=== PATIENT | male | born 1965 | race Caucasian/White ===

== ENCOUNTER 2016-10-03 14:22 | Outpatient (CLI) ==
[2014-05-07 02:01] VITALS: BMI 23.7
--- NOTE | 2016-10-03 15:37 | US ---
Examination: Ultrasonographic claudio-scale and color Doppler imaging of the scrotum in real time. Comparison: None available. Reason for study: Left testicular enlargement. FINDINGS: Right testicle: The right testicle measures 4.1 x 2.0 x 2.8 cm with normal appearing echotexture, normal vascular fl ow, and no identifiable mass lesions. The right epididymis is unremarkable with normal echotexture and normal vascular flow. Left testicle: The left testicle measures 4.4 x 2.3 x 3.6 cm with normal appearing echotexture and normal vascular flow. No identifiable mass lesion is seen within the left testicle. The left epididymis is unremarkable with normal appearing act echotexture and normal vascular flow. There is a mild varicocele noted on the left. There is a large hydrocele are seen adjacent to the left testicle. Impression: 1. Large hydrocele and mild varicocele on the left with no ultrasonographic evidence of acute left testicular torsion or mass lesion. 2. The right testicle appears normal.
== END 2016-10-03 14:23 | disposition home or self-care (01) ==
LOC: RAD 14:22
PROVIDERS: ATTEND Internal Medicine
DX: N44.8 Other noninflammatory disorders of the testis (principal); N43.3 Hydrocele, unspecified

== ENCOUNTER 2016-11-03 13:00 | Outpatient (RCR) ==
[2014-05-07 02:01] VITALS: BMI 23.7
--- NOTE | 2016-10-27 10:14 | RS.OPPTEV2 ---
Date of Note: 10/26/16 Visit #: 1 Date of Evaluation: 10/26/16 Payer Source: Insurance Treatment Diagnosis: Right scapular pain, strain of right shoulder History of Condition/Mechanism of Injury:: Patient reports right shoulder pain since approximately July 2016. States he thinks it started when he was changing the batteries of an electric vehicle. States pain has progressively gotten worse. Current Subjective/complaints:: Patient states his pain has progressively gotten worse. He is right hand dominant. States the pain keeps him up at night. Reports no previous problems with the right shoulder. He received an injection in the shoulder joint along with a 7 day steroid pack. States the injection seemed to help at the time, but the pain returned by the next day. States he has had tingling down the right arm into the hand. Treatment Side (optional): Right Medical History Medical History: Hypertension Smoking Status: Never smoker Hx Home Medications: States he has medication to take at night. He is unsure if it is pain medication or muscle relaxant. Patient's Goals: His goal is to get relief of right shoulder pain. Pain Assessment - Pain Description Pain Location: right scapula Pain Description: Aching Current Pain Intensity: 8/10 Worst Pain Intensity: not rated Functional Outcome Measure UE Functional Index: 47 (47/80=41.25% impairment) - G Codes & Severity Modifier G Codes & Modifier: NA Source of G Code score: NA Observation - Observation Posture: Forward Head, Rounded Shoulders, Scapula Asymmetry (right scapula depressed compared to the left) Handedness: Right - ROM Comments: Cervical AROM is WFL's, with patient reporting some pulling at the right scapula area with end range cervical flexion. Bilateral UE AROM is WFL's. - Special Tests Shoulder Empty Can (Supraspinatus) Test: Negative Left, Negative Right Shoulder Speed's Sign Test: Negative Left, Negative Right Shoulder Drop Arm Test: Negative Left, Negative Right Shoulder Iniguez-Marshall Impingement Test: Negative Left, Negative Right Bureau Director Strength Left Hand Bureau Director Strength: 62 lbs. Right Hand Bureau Director Strength: 80 lbs. Dynamometer Testing Position: 2nd Position Palpation Comments:: Patient with marked muscle guarding along the medial border of the right scapula. Patient with tenderness and trigger points throughout the medial and inferior border of the right scapula. Sensation - Sensation Right Upper Extremity: Intact/Normal Left Upper Extremity: Intact/Normal - Treatment Modality: Ultrasound Parameters/Method Applied: X 8 mins @ 1.5 w/cm2 continuous along medial and inferior border of scapula Patient Position: Sitting Interventions - Exercise/Activities/Manual Therapy Exercises/Activities: Demonstrated gentle scapula protraction to stretch rhomboids. Manual Therapy: X 16 mins DTM and trigger point work at middle traps/rhomboids. Several trigger points are active along the medial and inferior border of the right scapula. - Charges Total Direct Minutes: 45 mins Total Treatment Time: 45 mins Procedures billed for this date of service:: Mele saini, US, manual therapy Assessment Assessment: Patient presents to therapy with a diagnosis of right shoulder strain. He demonstrates significant muscle guarding along the right periscapular musculature. He is tender and exhibits multiple active trigger points along the medial and inferior border of the right scapula. He demonstrates great potential to benefit from manual therapy to this region to relieve muscle guarding and decrease his pain.. Patient Education: Education of diagnosis, Body/Joint mechanics, Home Exercise Program, Home Safety, Activity Modification, Education of Plan of Care Rehab Potential: Good Short Term Goals Goal #1: Muscle tone along medial border of right scapula <moderate. Goal to be met by: 11/09/16 Goal #2: Tenderness along erick-scapular musculature decreased to minimal. Goal to be met by: 11/09/16 Goal #3: Pt to demonstrate improved postural awareness. Goal to be met by: 11/09/16 Goal #4: Pain at rest <5/10. Goal to be met by: 11/09/16 Assisted Goals Goal #1: Pt independent in HEP. Goal to be met by: 12/10/16 Goal #2: Pt able to use right UE as needed without pain or limitation. Goal to be met by: 12/10/16 Goal #3: Score on UE functional scale improved to 70/80. Goal to be met by: 12/10/16 Plan - Treatment to be Provided Procedures: Therapeutic Exercises, Therapeutic Activity, Manual Therapy, Splinting/Taping, Patient Education Modalities: Electrical Stimulation, Ultrasound/Phonophoresis, Class IV Laser, Cryotherapy, Hot Packs - Treatment Plan Frequency: 3 X week Duration: 6 weeks ORDER # VISITS AND/OR THROUGH DATE: 12/10/16 - Treatment Code (1) Muscle hypertonia Comments: M62.89 (2) Right shoulder pain Qualifiers: Chronicity: acute Qualified Description: Acute pain of right shoulder Qualifier Code(s): (M25.511) Pain in right shoulder
--- NOTE | 2016-10-27 10:26 | RS.OPPTDN ---
Subjective Date of Note: 10/27/16 Visit #: 2 Date of Evaluation: 10/26/16 Payer Source: Insurance Treatment Diagnosis: Right scapular pain, strain of right shoulder Current Subjective/complaints:: Patient reports being sore after therapy yesterday. States he used the tennis ball we gave him, against the wall to put pressure on the areas around his shoulder blade. Pain Assessment - Pain Description Pain Location: right scapula Pain Description: Aching Current Pain Intensity: not rated today, sore - Treatment Modality: Electrical Stim Unattended Parameters/Method Applied: 4 small pads, 2 pads to mid-inferior scapular border , 2 pads to superior angle of scapula to middle scapula border, X 20 mins of HVGS up to 155 peak volts Patient Position: Prone - Heat/Cryotherapy Treatment: Hot Pack (cervical pack over right scapula with Estim) Interventions - Exercise/Activities/Manual Therapy Exercises/Activities: none today Manual Therapy: X 21 mins DTM and trigger point work at right upper traps and along medial and inferior border of right scapula. Demonstrates moderate increased tone that relaxes with manual therapy. Reports significant tenderness with work at trigger points. - Charges Total Direct Minutes: 21 mins Total Treatment Time: 41 mins Procedures billed for this date of service:: HP, Estim, Manual therapy Assessment: Patient with continued muscle guarding and active trigger points throughout the borders of the right scapula. He will benefit from continued modalities and manual therapy to decrease his muscle guarding and pain. Short Term Goals Goal #1: Muscle tone along medial border of right scapula <moderate. Goal to be met by: 11/09/16 Goal #2: Tenderness along erick-scapular musculature decreased to minimal. Goal to be met by: 11/09/16 Goal #3: Pt to demonstrate improved postural awareness. Goal to be met by: 11/09/16 Goal #4: Pain at rest <5/10. Goal to be met by: 11/09/16 Skilled Nursing Goals Goal #1: Pt independent in HEP. Goal to be met by: 12/10/16 Goal #2: Pt able to use right UE as needed without pain or limitation. Goal to be met by: 12/10/16 Goal #3: Score on UE functional scale improved to 70/80. Goal to be met by: 12/10/16 Plan PLAN OF CARE EXPIRES ON:: 12/10/16 ORDER # VISITS AND/OR THROUGH DATE: 12/10/16 PLAN: Continue Plan of Care
--- NOTE | 2016-11-01 09:36 | RS.OPPTDN ---
Subjective Date of Note: 11/01/16 Visit #: 3 Date of Evaluation: 10/26/16 Payer Source: Insurance Treatment Diagnosis: Right scapular pain, strain of right shoulder Current Subjective/complaints:: Patient reports feeling better after last PT session. Pain Assessment - Pain Description Pain Location: right scapula Pain Description: Dull, Aching Current Pain Intensity: 3 - Treatment Modality: Electrical Stim Unattended Parameters/Method Applied: 20 mins. high volt,channel 1 @ 155 pv,channel 2 @ 135 pv. to R scapular medial border. Patient Position: Prone - Heat/Cryotherapy Treatment: Hot Pack (concurrent with e-stim) Interventions - Exercise/Activities/Manual Therapy Exercises/Activities: Instructed in chin tucks and scapular /postural motion while on e-stim. Total minutes of Exercise: 5 Manual Therapy: X 20 mins DTM and trigger point work at right upper traps and along medial and inferior border of right scapula. Demonstrates moderate increased tone that relaxes with manual therapy. Reports significant tenderness with work at trigger points. Total minutes of Manual Therapy: 20 - Charges Total Direct Minutes: 25 Total Treatment Time: 45 Procedures billed for this date of service:: hp,e-stim,manual therapy Assessment: Patient has good erythmic response after manual therapy today.He is tender along the medial border of R scapula,trigger points at the superior and inferior angle of the scapula.He reports relief after PT session today. Patient Education: Education of diagnosis, Body/Joint mechanics, Home Exercise Program, Home Safety, Activity Modification, Education of Plan of Care Short Term Goals Goal #1: Muscle tone along medial border of right scapula <moderate. Goal to be met by: 11/09/16 Progress towards Goal:: Progressing Goal #2: Tenderness along erick-scapular musculature decreased to minimal. Goal to be met by: 11/09/16 Progress towards Goal:: Progressing Goal #3: Pt to demonstrate improved postural awareness. Goal to be met by: 11/09/16 Goal #4: Pain at rest <5/10. Goal to be met by: 11/09/16 Senior Living Goals Goal #1: Pt independent in HEP. Goal to be met by: 12/10/16 Goal #2: Pt able to use right UE as needed without pain or limitation. Goal to be met by: 12/10/16 Goal #3: Score on UE functional scale improved to 70/80. Goal to be met by: 12/10/16 Plan PLAN OF CARE EXPIRES ON:: 12/10/16 ORDER # VISITS AND/OR THROUGH DATE: 12/10/16 PLAN: Continue Plan of Care
--- NOTE | 2016-11-03 15:48 | RS.OPPTDN ---
Subjective Date of Note: 11/03/16 Visit #: 4 Date of Evaluation: 10/26/16 Payer Source: Insurance Treatment Diagnosis: Right scapular pain, strain of right shoulder Current Subjective/complaints:: Patient reports having pain yesterday all day at about 7/10. States it is slightly better today. Reports using biofreeze, ice, and heat at right scapula. Pain Assessment - Pain Description Pain Location: right scapula Pain Description: Dull, Aching Current Pain Intensity: 3 - Treatment Modality: Electrical Stim Unattended Parameters/Method Applied: 4 small pads IFC X 20 mins to right erick-scapular musculature up to 11 peak volts Patient Position: Prone - Heat/Cryotherapy Treatment: Hot Pack Interventions - Exercise/Activities/Manual Therapy Exercises/Activities: Instructed in ulnar, median, and radial nerve gliding. Patient unable to get in full Ulnar III position for ulnar nerve stretch. Shown position to try that is less of a stretch of Ulnar II. Total minutes of Exercise: 5 mins Manual Therapy: X 14 mins Performed effleurage/ light soft tissue manual therapy to reduce swelling and tenderness from last therapy session. Reports significant tenderness with palpation to trigger points, especially along medial border of the scapula. HOME EXERCISE PROGRAM: scapula protraction , nerve glides. - Charges Total Direct Minutes: 19 mins Total Treatment Time: 39 mins Procedures billed for this date of service:: HP, EStim, EX Assessment: Patient with more tenderness and swelling around the right scapula. He could not tolerate deep tissue or trigger point work. He goes to Dr. Solitario for follow up tomorrow. Patient demonstrates compliance with HEP?: Yes Short Term Goals Goal #1: Muscle tone along medial border of right scapula <moderate. Goal to be met by: 11/09/16 Progress towards Goal:: Progressing Goal #2: Tenderness along erick-scapular musculature decreased to minimal. Goal to be met by: 11/09/16 Progress towards Goal:: Progressing Goal #3: Pt to demonstrate improved postural awareness. Goal to be met by: 11/09/16 Goal #4: Pain at rest <5/10. Goal to be met by: 11/09/16 [facility] Goals Goal #1: Pt independent in HEP. Goal to be met by: 12/10/16 Progress towards goal: Progressing Goal #2: Pt able to use right UE as needed without pain or limitation. Goal to be met by: 12/10/16 Goal #3: Score on UE functional scale improved to 70/80. Goal to be met by: 12/10/16 Plan PLAN OF CARE EXPIRES ON:: 12/10/16 ORDER # VISITS AND/OR THROUGH DATE: 12/10/16 PLAN: Progress Exercises
--- NOTE | 2016-12-30 15:39 | RS.QUICKDC ---
Discharge from PT Date of Discharge: 11/08/16 Number of Visits: 4 Reason for Discharge: Patient attended two weeks of therapy as ordered by his doctor. He followed up with him after his last scheduled session and no further contact was made to continue therapy. Patient reported continued pain, primarily around the right scapula. He demonstrated progress towards goals, but did not met his goals due to lack of time. Patient with HEP. Patient discharged at this time due to no further contact to continue therapy.
== END 2016-11-08 ==
PROVIDERS: ATTEND Orthopaedic Surgery
DX: S46.911A Strain of unspecified muscle, fascia and tendon at shoulder and upper arm level, right arm, initial encounter (principal); M25.511 Pain in right shoulder

== ENCOUNTER 2017-01-06 08:15 | Outpatient (RCR) ==
[2014-05-07 02:01] VITALS: BMI 23.7
--- NOTE | 2016-12-30 10:36 | RS.OPPTEV2 ---
Date of Note: 12/30/16 Visit #: 1 Date of Evaluation: 12/30/16 Payer Source: Insurance Surgery Performed?: Yes Date of Procedure: 11/17/16 Treatment Diagnosis: right shoulder weakness, s/p Open Bicep Tenodesis History of Condition/Mechanism of Injury:: Patient reports right shoulder pain since approximately July 2016. States he thinks it started when he was changing the batteries of an electric vehicle. States pain has progressively gotten worse. He attended two weeks of Outpatient Physical Therapy prior to surgery. Prior Level of Function.....Patient was independent with: ADL's, Self Care, Work /Vocation, Caregiving, Ambulation/Mobility, Community Integration/Access Functional Limitations: Reaching, Pushing, Pulling, Lifting, Carrying Current Subjective/complaints:: Patient reports he was in a sling for one day. Given pendulum exercises from the doctor's office. States he has had minimal to no pain. He has not had pain medication for about 4 weeks. States he started using the right UE for daily activities about two weeks ago. Reports he hopes to return to work soon. 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 Currently rates pain 0/10. States he is not having any pain. Treatment Side (optional): Right Medical History Medical History: Hypertension Smoking Status: Never smoker Hx Home Medications: none Patient's Goals: His goal is to regain full strength of the right UE and return to work. Functional Outcome Measure UE Functional Index: 74 (74/80=7.5% impairment) Other: Patient rates himself with less impairment than he should be at 6 weeks s/p biceps tenodesis. Due to weakness of right UE, he presents to be more in the range of 20 to 30% impairment at this time. - G Codes & Severity Modifier G Codes & Modifier: NA Source of G Code score: NA Observation - Observation Inspection: Right shoulder presents with clean, well-healing incision approximately 3 inches at the anterior aspect of the joint. Right biceps muscle belly demonstrates "Blu" deformity compared to the presentation of the left biceps muscle belly. Posture: Forward Head, Rounded Shoulders Handedness: Right - Right Shoulder ROM Comments: Patient volunteers that he has good ROM in right shoulder. Demonstrates functional flexion, scaption, ER, and IR. Demonstrates full AROM of right elbow, wrist, and hand. - Right Shoulder Strength Comments: Gentle strength assessment of the right shoulder finds muscle strength at least 4/5. Triceps 4+/5, Biceps at least 4/5. Gentle isometric given to test biceps. No pain with testing. Right wrist strength 5/5. Dressage Instructor Strength Left Hand Dressage Instructor Strength: 80 lbs. Right Hand Dressage Instructor Strength: 62 lbs. Dynamometer Testing Position: 2nd Position Palpation Comments:: Patient reports no tenderness with palpation throughout the right shoulder or biceps. Sensation - Sensation Right Upper Extremity: Intact/Normal Left Upper Extremity: Intact/Normal Interventions - Exercise/Activities/Manual Therapy Exercises/Activities: Patient instructed in RTC series in pendulum position, scapular retraction. Patient advised to avoid heavy lifting or strain of the right elbow/shoulder. Manual Therapy: Na HOME EXERCISE PROGRAM: RTC series in pendulum position, scapular retraction. - Charges Total Direct Minutes: 35 mins Total Treatment Time: 35 mins Procedures billed for this date of service:: FABIÁN Santiago Assessment Assessment: Patient presents 6 weeks s/p right open Biceps Tenodesis. 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 He reports no pain and has started trying to use the right UE more as instructed by Dr. Solitario. 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 Patient Education: Education of diagnosis, Body/Joint mechanics, Home Exercise Program, Home Safety, Activity Modification, Education of Plan of Care Short Term Goals Goal #1: Patient independent and compliant with HEP. Goal to be met by: 01/13/17 Goal #2: Right shoulder strength 4+/5. Goal to be met by: 01/13/17 Goal #3: Patient to demonstate good postural awareness. Goal to be met by: 01/13/17 Goal #4: Right electronic warfare operator strength improved to 70 lbs. Goal to be met by: 01/13/17 Care Home Goals Goal #1: Pt knows HEP and to cont. Ex's to maintain level of function at D/C. Goal to be met by: 02/13/17 Goal #2: Pt able to perform all ADL's/functional reaching w/o pain or limitation. Goal to be met by: 02/13/17 Goal #3: Score on UE functional scale improved to 80/80. Goal to be met by: 02/13/17 Goal #4: Pt to return to work without limitation. Goal to be met by: 02/13/17 Plan - Treatment to be Provided Procedures: Therapeutic Exercises, Therapeutic Activity, Patient Education Modalities: Cryotherapy - Treatment Plan Frequency: 3 X week Duration: 6 weeks ORDER # VISITS AND/OR THROUGH DATE: 02/13/17 - Treatment Code (1) Muscle right arm weakness Comments: M62.81 (2) S/P shoulder surgery Comments: Z98.890 right shoulder open Biceps Tenodesis
--- NOTE | 2017-01-02 09:22 | RS.OPPTDN ---
Subjective Date of Note: 01/02/17 Visit #: 2 Date of Evaluation: 12/30/16 Payer Source: Insurance Treatment Diagnosis: right shoulder weakness, s/p Open Bicep Tenodesis Current Subjective/complaints:: Patient reports doing well with basic HEP and with light ADL's. Reports right hand still tender is noticeably weaker than left. Pain Assessment - Pain Description Pain Location: right scapula Current Pain Intensity: mild Interventions - Exercise/Activities/Manual Therapy Exercises/Activities: [id number] Isometrics for right biceps, triceps, shoulder IR , ER, flex, and abd. Right RTC series with 4# x4 directions. Red theraband for bilateral shoulder ER. Red theraband for short range shoulder flexion with full elbow extension. Added blue theraband for scapular retraction. Multi-gym station 30# scap retraction. 2# and 4# dumbells for biceps without discomfort. Blue and black digiflexors and heavy gripper for right hand strengthening. Advised patient we will focus on general strengthening of shoulder for stability and should avoid stressing the biceps at this time. Total minutes of Exercise: 25mins Manual Therapy: Na HOME EXERCISE PROGRAM: RTC series in pendulum position, scapular retraction. Cuff series with light weights. Red theraband for bilateral shoulder ER and right shoulder flexion at low level. Blue theraband for scapular retraction. - Charges Total Direct Minutes: 25mins Total Treatment Time: 25mins Procedures billed for this date of service:: EX2 Assessment: Patient tolerates exercise well. will need to aviod overuse of biceps while strengthening shoulder. Patient motivated to progress. Patient Education: Body/Joint mechanics, Home Exercise Program, Home Safety, Activity Modification Patient demonstrates compliance with HEP?: Yes Short Term Goals Goal #1: Patient independent and compliant with HEP. Goal to be met by: 01/13/17 Progress towards Goal:: Progressing Goal #2: Right shoulder strength 4+/5. Goal to be met by: 01/13/17 Goal #3: Patient to demonstate good postural awareness. Goal to be met by: 01/13/17 Progress towards Goal:: Progressing Goal #4: Right still tender strength improved to 70 lbs. Goal to be met by: 01/13/17 Commercial Lending Vice President Goals Goal #1: Pt knows HEP and to cont. Ex's to maintain level of function at D/C. Goal to be met by: 02/13/17 Goal #2: Pt able to perform all ADL's/functional reaching w/o pain or limitation. Goal to be met by: 02/13/17 Goal #3: Score on UE functional scale improved to 80/80. Goal to be met by: 02/13/17 Goal #4: Pt to return to work without limitation. Goal to be met by: 02/13/17 Plan PLAN OF CARE EXPIRES ON:: 02/13/17 ORDER # VISITS AND/OR THROUGH DATE: 02/13/17 PLAN: Continue Plan of Care
--- NOTE | 2017-01-04 10:58 | RS.OPPTDN ---
Subjective Date of Note: 01/04/17 Visit #: 3 Date of Evaluation: 12/30/16 Payer Source: Insurance Treatment Diagnosis: right shoulder weakness, s/p Open Bicep Tenodesis Current Subjective/complaints:: Patient reports mild increased soreness right shoulder with increased resistance exercise. Denies pain or soreness right biceps. Pain Assessment - Pain Description Pain Location: right scapula Current Pain Intensity: mild Interventions - Exercise/Activities/Manual Therapy Exercises/Activities: [id number] Isometrics for right biceps, triceps, shoulder IR , ER, flex, and abd. In sitting, 2# for resistive right shoulder flexion, scaption, and abduction, 4s/5reps each. Isometric for flexion, scaption, abd, IR , ER, biceps and triceps. Right RTC series with 5# x4 directions. Increased to green theraband for bilateral shoulder ER. Multi-gym station 30# scap retraction 3s/10reps. 2# dumbells for biceps without discomfort. Green theraband for "baseball throw", 2s/10reps. Reviewed general strengthening of shoulder for stability and should avoid stressing the biceps at this time. Total minutes of Exercise: 25mins Manual Therapy: Na HOME EXERCISE PROGRAM: RTC series in pendulum position, scapular retraction. Cuff series with light weights. Red theraband for bilateral shoulder ER and right shoulder flexion at low level. Blue theraband for scapular retraction. - Charges Total Direct Minutes: 25mins Total Treatment Time: 25mins Procedures billed for this date of service:: EX2 Assessment: Patient able to progress with resistive exercise. Will need to continue to be conservative with biceps strengthening and avoid repetative motion. Patient Education: Home Exercise Program Patient demonstrates compliance with HEP?: Yes Short Term Goals Goal #1: Patient independent and compliant with HEP. Goal to be met by: 01/13/17 Progress towards Goal:: Progressing Goal #2: Right shoulder strength 4+/5. Goal to be met by: 01/13/17 Goal #3: Patient to demonstate good postural awareness. Goal to be met by: 01/13/17 Progress towards Goal:: Progressing Goal #4: Right hat lacer strength improved to 70 lbs. 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 Ex's to maintain level of function at D/C. Goal to be met by: 02/13/17 Goal #2: Pt able to perform all ADL's/functional reaching w/o pain or limitation. Goal to be met by: 02/13/17 Goal #3: Score on UE functional scale improved to 80/80. Goal to be met by: 02/13/17 Goal #4: Pt to return to work without limitation. Goal to be met by: 02/13/17 Plan PLAN OF CARE EXPIRES ON:: 02/13/17 ORDER # VISITS AND/OR THROUGH DATE: 02/13/17 PLAN: Continue Plan of Care
--- NOTE | 2017-01-06 14:01 | RS.OPPTDN ---
Subjective Date of Note: 01/06/17 Visit #: 4 Date of Evaluation: 12/30/16 Payer Source: Insurance Treatment Diagnosis: right shoulder weakness, s/p Open Bicep Tenodesis Current Subjective/complaints:: Patient reports progressing well. States he tried to hold a small pistol yesterday and has difficulty holding proper position for extended period. He reports the handgun he carries on duty is heavier and would be more difficult to hold or shoot. States he is pleased with progress of right UE and coconut jelly roller strength. Pain Assessment - Pain Description Pain Location: right scapula Current Pain Intensity: mild to mod soreness Interventions - Exercise/Activities/Manual Therapy Exercises/Activities: [id number] Isometrics for right biceps, triceps, shoulder IR , ER, flex, and abd. In sitting, 2# for resistive right shoulder flexion, scaption, and abduction, 4s/5reps each. Isometric for flexion, scaption, abd, IR , ER, biceps and triceps. Green theraband for bilateral shoulder ER. Multi- gym station 30# scap retraction 3s/10reps. 2# dumbells for biceps without discomfort. Green theraband for "baseball throw", 2s/10reps. Ball on wall with 2 # cuff weight to right wrist. Works with 1# dumbell for oscillating shoulder flexion, scaption, abduction, and "empty can" postion (at 90degrees shoulder flexion). Bodyblade different positions short sets. Ended with additional isometrics to shoulder and elbow. Reviewed HEP and to not stress the biceps at this time. Total minutes of Exercise: 25mins Manual Therapy: Na HOME EXERCISE PROGRAM: RTC series in pendulum position, scapular retraction. Cuff series with light weights. Red theraband for bilateral shoulder ER and right shoulder flexion at low level. Blue theraband for scapular retraction. - Objective Findings Observations,measurements,etc.: Right hand coconut jelly roller increased to 68# today. - Charges Total Direct Minutes: 25mins Total Treatment Time: 25mins Procedures billed for this date of service:: EX2 Assessment: Patient progressing well with strengthening. He will need to progress back to PLOF to perform all work duties. Patient Education: Body/Joint mechanics, Home Exercise Program, Home Safety, Activity Modification Patient demonstrates compliance with HEP?: Yes Short Term Goals Goal #1: Patient independent and compliant with HEP. Goal to be met by: 01/13/17 Progress towards Goal:: Progressing Goal #2: Right shoulder strength 4+/5. Goal to be met by: 01/13/17 Progress towards Goal:: Progressing Goal #3: Patient to demonstate good postural awareness. Goal to be met by: 01/13/17 Progress towards Goal:: Progressing Goal #4: Right coconut jelly roller strength improved to 70 lbs. 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 Ex's to maintain level of function at D/C. Goal to be met by: 02/13/17 Goal #2: Pt able to perform all ADL's/functional reaching w/o pain or limitation. Goal to be met by: 02/13/17 Goal #3: Score on UE functional scale improved to 80/80. Goal to be met by: 02/13/17 Goal #4: Pt to return to work without limitation. Goal to be met by: 02/13/17 Plan PLAN OF CARE EXPIRES ON:: 02/13/17 ORDER # VISITS AND/OR THROUGH DATE: 02/13/17 PLAN: Continue Plan of Care
== END 2017-01-08 ==
PROVIDERS: ATTEND Orthopaedic Surgery
DX: M75.21 Bicipital tendinitis, right shoulder (principal)

== ENCOUNTER 2017-01-23 08:00 | Outpatient (RCR) ==
[2014-05-07 02:01] VITALS: BMI 23.7
--- NOTE | 2017-01-09 09:34 | RS.OPPTDN ---
Subjective Date of Note: 01/09/17 Visit #: 5 Date of Evaluation: 12/30/16 Payer Source: Insurance Treatment Diagnosis: right shoulder weakness, s/p Open Bicep Tenodesis Current Subjective/complaints:: Patient says he may have slept wrong or slept on his shoulder due to increase in soreness. He says he has done well with all PT exercises and says he is able to notice improvement with strength, but understands he needs to continue for further strengthening. Reports he returns to his ortho tomorrow morning. Pain Assessment - Pain Description Pain Location: right scapula Current Pain Intensity: mild and fatigue with progressive exercises Interventions - Exercise/Activities/Manual Therapy Exercises/Activities: [id number] Isometrics for right biceps, triceps, shoulder IR , ER, flex, and abd. In sitting, 2# for resistive right shoulder flexion, scaption, and abduction, 4s/5reps each. Isometric for flexion, scaption, abd, IR , ER, biceps and triceps. Green theraband for bilateral shoulder ER. Multi- gym station 30# scap retraction 3s/10reps. 2# dumbells for biceps without discomfort. Green theraband for "baseball throw", 2s/10reps. Ball on wall with 2 # cuff weight to right wrist. Works with 1# dumbell for oscillating shoulder flexion, scaption, abduction, and "empty can" postion (at 90degrees shoulder flexion). Bodyblade different positions short sets. Ended with additional isometrics to shoulder and elbow. Reviewed HEP and to not stress the biceps at this time. Manual Therapy: Na HOME EXERCISE PROGRAM: RTC series in pendulum position, scapular retraction. Cuff series with light weights. Red theraband for bilateral shoulder ER and right shoulder flexion at low level. Blue theraband for scapular retraction. - Objective Findings Observations,measurements,etc.: Carpet Binder @ 2nd position R hand 69# after therex - Charges Total Direct Minutes: 25 Total Treatment Time: 25 Procedures billed for this date of service:: ex2 Assessment: Patient progressing well with all therex. He has general muscle fatigue after completion of therex. He is consistent with HEP and denies any actual pain, tenderness, or popping with activities. Patient Education: Education of diagnosis, Body/Joint mechanics, Home Exercise Program, Home Safety, Activity Modification, Education of Plan of Care Patient demonstrates compliance with HEP?: Yes Short Term Goals Goal #1: Patient independent and compliant with HEP. Goal to be met by: 01/13/17 Progress towards Goal:: Progressing Goal #2: Right shoulder strength 4+/5. Goal to be met by: 01/13/17 Progress towards Goal:: Progressing Goal #3: Patient to demonstate good postural awareness. Goal to be met by: 01/13/17 Progress towards Goal:: Progressing Goal #4: Right jigmaker strength improved to 70 lbs. 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 Ex's to maintain level of function at D/C. Goal to be met by: 02/13/17 Goal #2: Pt able to perform all ADL's/functional reaching w/o pain or limitation. Goal to be met by: 02/13/17 Goal #3: Score on UE functional scale improved to 80/80. Goal to be met by: 02/13/17 Goal #4: Pt to return to work without limitation. Goal to be met by: 02/13/17 Plan PLAN OF CARE EXPIRES ON:: 02/13/17 ORDER # VISITS AND/OR THROUGH DATE: 02/13/17 PLAN: Progress Exercises (Patient to attend ortho follow up tomorrow (January 10))
--- NOTE | 2017-01-11 14:37 | RS.OPPTDN ---
Subjective Date of Note: 01/11/17 Visit #: 6 Date of Evaluation: 12/30/16 Payer Source: Insurance Treatment Diagnosis: right shoulder weakness, s/p Open Bicep Tenodesis Current Subjective/complaints:: Patient states he saw physician for follow-up and was told to progress strengthening. Pain Assessment - Pain Description Pain Location: right scapula Current Pain Intensity: mild discomfort and some fatigue with strengthening Interventions - Exercise/Activities/Manual Therapy Exercises/Activities: [id number] Begins with 3mins on UE restorator. Multi-gym stations of scap retract 40#, biceps curl with long bar 20#, triceps with long bar 40#, and chest press 40#, all 2s/10reps each. Green theraband for overhead flexion "baseball throw" and overhead extension, 2s/10reps each. Isometrics for right biceps, triceps, shoulder IR, ER, flex, ext, add and abd. 3# for biceps curl 2# and 8# for overhead triceps press, 2s/10reps each. 3# dumbell for resistive/ocillating right shoulder flexion, scaption, abduction, and empty-can for supraspinatus, 2s/10reps each. Isometric for flexion, scaption, abd, IR, ER , biceps and triceps. Total minutes of Exercise: 30mins Manual Therapy: Na HOME EXERCISE PROGRAM: RTC series in pendulum position, scapular retraction. Cuff series with light weights. Red theraband for bilateral shoulder ER and right shoulder flexion at low level. Blue theraband for scapular retraction. - Charges Total Direct Minutes: 30mins Total Treatment Time: 30mins Procedures billed for this date of service:: EX2 Assessment: Patient progressing with strengthening Patient Education: Body/Joint mechanics, Home Exercise Program Patient demonstrates compliance with HEP?: Yes Short Term Goals Goal #1: Patient independent and compliant with HEP. Goal to be met by: 01/13/17 Progress towards Goal:: Progressing Goal #2: Right shoulder strength 4+/5. Goal to be met by: 01/13/17 Progress towards Goal:: Progressing Goal #3: Patient to demonstate good postural awareness. 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 Ex's to maintain level of function at D/C. Goal to be met by: 02/13/17 Goal #2: Pt able to perform all ADL's/functional reaching w/o pain or limitation. Goal to be met by: 02/13/17 Progress towards goal: Progressing Goal #3: Score on UE functional scale improved to 80/80. Goal to be met by: 02/13/17 Goal #4: Pt to return to work without limitation. Goal to be met by: 02/13/17 Plan PLAN OF CARE EXPIRES ON:: 02/13/17 ORDER # VISITS AND/OR THROUGH DATE: 02/13/17 PLAN: Continue Plan of Care
--- NOTE | 2017-01-16 10:18 | RS.OPPTDN ---
Subjective Date of Note: 01/16/17 Visit #: 7 Date of Evaluation: 12/30/16 Payer Source: Insurance Treatment Diagnosis: right shoulder weakness, s/p Open Bicep Tenodesis Current Subjective/complaints:: Patient reports right UE strength continues to improve. States he has tried to shot another handgun that he carries while on duty and felt he was able to tolerate it better. He continues HEP and is increasing resistance. Pain Assessment - Pain Description Pain Location: right scapula Current Pain Intensity: mild discomfort and some fatigue with strengthening Interventions - Exercise/Activities/Manual Therapy Exercises/Activities: [id number] Begins with manually resisted isometric multi- position for biceps, triceps, shoulder IR, ER, flex, scap, abd, and ext. Multi- gym stations of scap retract 40#, biceps curl 30#, and chest press increased to 60#, all 3s/10reps each. Green theraband for overhead flexion "baseball throw" and overhead extension, 2s/10reps each. 3# cuff to right wrist with overhead "ball on the wall" with large therapy/yoga ball, 3sets of approx 30sec. Increased to 5# dumbell for resistive/ocillating right shoulder flexion, scaption, abduction, extension, and empty-can for supraspinatus, 2s/10reps each. Increased to 10# for overhead triceps press, 2s/10reps. Reviewed cuff series and added triceps press with 10# dumbell 2s/10reps. Total minutes of Exercise: 30mins Manual Therapy: Na HOME EXERCISE PROGRAM: RTC series in pendulum position, scapular retraction. Cuff series with light weights. Red theraband for bilateral shoulder ER and right shoulder flexion at low level. Blue theraband for scapular retraction. - Objective Findings Observations,measurements,etc.: Right hand flight test mechanic 75# and left to 78# today. - Charges Total Direct Minutes: 30mins Total Treatment Time: 30mins Procedures billed for this date of service:: EX2 Assessment: Patient progressing well with strengthening of right UE and flight test mechanic strength. Patient Education: Body/Joint mechanics, Home Exercise Program, Home Safety, Activity Modification Comments: Patient education of safety with home gym equipment. Patient demonstrates compliance with HEP?: Yes Short Term Goals Goal #1: Patient independent and compliant with HEP. Goal to be met by: 01/13/17 (100%) Progress towards Goal:: Met Goal #2: Right shoulder strength 4+/5. Goal to be met by: 01/13/17 (75%) Progress towards Goal:: Progressing Goal #3: Patient to demonstate good postural awareness. Goal to be met by: 01/13/17 (80%) Progress towards Goal:: Progressing Goal #4: Right flight test mechanic strength improved to 70 lbs. Goal to be met by: 01/13/17 (100%) Progress towards Goal:: Met Comments:: Right hand flight test mechanic 75# today. 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 Ex's to maintain level of function at D/C. Goal to be met by: 02/13/17 Progress towards goal: Progressing Goal #2: Pt able to perform all ADL's/functional reaching w/o pain or limitation. Goal to be met by: 02/13/17 Progress towards goal: Progressing Goal #3: Score on UE functional scale improved to 80/80. Goal to be met by: 02/13/17 Goal #4: Pt to return to work without limitation. Goal to be met by: 02/13/17 Plan PLAN OF CARE EXPIRES ON:: 02/13/17 ORDER # VISITS AND/OR THROUGH DATE: 02/13/17 PLAN: Continue Plan of Care
--- NOTE | 2017-01-19 11:51 | RS.OPPTDN ---
Subjective Date of Note: 01/19/17 Visit #: 8 Date of Evaluation: 12/30/16 Payer Source: Insurance Treatment Diagnosis: right shoulder weakness, s/p Open Bicep Tenodesis Current Subjective/complaints:: Patient reports continued improvement in strength of the right UE. Pain Assessment - Pain Description Pain Location: right scapula Current Pain Intensity: mild discomfort and some fatigue with above shoulder height strengthening Interventions - Exercise/Activities/Manual Therapy Exercises/Activities: [id number] Begins with manually resisted isometric multi- position for biceps, triceps, shoulder IR, ER, flex, scap, abd, and ext. Multi- gym stations of scap retract 40#, biceps curl 30#, and chest press 60#, all 3s/ 10reps each. Increased to blue theraband for overhead flexion "baseball throw" and overhead extension, 2s/10reps each. Bodyblade, 3 positions. 3# cuff to each wrist with overhead "ball on the wall" with large therapy/yoga ball, 3sets of approx 30sec. 5# dumbell for resistive/ocillating right shoulder flexion, scaption, abduction, extension, and empty-can for supraspinatus, 2s/10reps each. 10# for overhead triceps press, 2s/10reps. Total minutes of Exercise: 30mins Manual Therapy: Na HOME EXERCISE PROGRAM: RTC series in pendulum position, scapular retraction. Cuff series with light weights. Red theraband for bilateral shoulder ER and right shoulder flexion at low level. Blue theraband for scapular retraction. 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 - Charges Total Direct Minutes: 30mins Total Treatment Time: 30mins Procedures billed for this date of service:: EX2 Assessment: Patient progressing with resistive exercise and preparing for return to full work duties. Patient Education: Home Exercise Program Patient demonstrates compliance with HEP?: Yes Short Term Goals Goal #1: Patient independent and compliant with HEP. Goal to be met by: 01/13/17 (100%) Progress towards Goal:: Met Goal #2: Right shoulder strength 4+/5. Goal to be met by: 01/13/17 (75%) Progress towards Goal:: Progressing Goal #3: Patient to demonstate good postural awareness. Goal to be met by: 01/13/17 (80%) Progress towards Goal:: Progressing Goal #4: Right service order expediter strength improved to 70 lbs. Goal to be met by: 01/13/17 (100%) Progress towards Goal:: Met Correction Goals Goal #1: Pt knows HEP and to cont. Ex's to maintain level of function at D/C. Goal to be met by: 02/13/17 Progress towards goal: Progressing Goal #2: Pt able to perform all ADL's/functional reaching w/o pain or limitation. Goal to be met by: 02/13/17 Progress towards goal: Progressing Goal #3: Score on UE functional scale improved to 80/80. Goal to be met by: 02/13/17 Goal #4: Pt to return to work without limitation. Goal to be met by: 02/13/17 Plan PLAN OF CARE EXPIRES ON:: 02/13/17 ORDER # VISITS AND/OR THROUGH DATE: 02/13/17 PLAN: Progress Exercises (Continue and progress strength to prepare patient for return to full duty at work.)
--- NOTE | 2017-01-23 11:48 | RS.OPPTDN ---
Subjective Date of Note: 01/23/17 Visit #: 9 Date of Evaluation: 12/30/16 Payer Source: Insurance Treatment Diagnosis: right shoulder weakness, s/p Open Bicep Tenodesis Current Subjective/complaints:: Patient reports he is doing well with HEP. States he feels much stronger and should be able to perform most of his work duties. States he can continue HEP to progress strengthening. Pain Assessment - Pain Description Pain Location: right scapula Current Pain Intensity: mild discomfort and some fatigue with above shoulder height strengthening Interventions - Exercise/Activities/Manual Therapy Exercises/Activities: [id number] Manually resisted isometric multi-position for biceps, triceps, shoulder IR, ER, flex, scap, abd, and ext. Multi-gym stations of scap retract 40#, biceps curl 30#, and chest press 60#, all 3s/10reps each. Increased to black theraband for overhead flexion "baseball throw" 2s/10reps each. Bodyblade, 3 positions. Increased to 4# cuff to each wrist with overhead "ball on the wall" with large therapy/yoga ball, 3sets of approx 30sec. 5# dumbell for resistive/ocillating right shoulder flexion, scaption, abduction, extension, and empty-can for supraspinatus, 2s/10reps each. 10# for overhead triceps press, 2s/10reps. Blue tubing for resistive flexion and scaption to shoulder height in standing. Ocillating flexion and scaption at shoulder height in standing. Total minutes of Exercise: 30mins Manual Therapy: Na HOME EXERCISE PROGRAM: RTC series in pendulum position, scapular retraction. Cuff series with light weights. Red theraband for bilateral shoulder ER and right shoulder flexion at low level. Blue theraband for scapular retraction. - Objective Findings Observations,measurements,etc.: Patient demos right shoulder MMT - Charges Total Direct Minutes: 30mins Total Treatment Time: 35mins Procedures billed for this date of service:: EX2 Assessment: Patient has progressed well and feels he can continue HEP. Harry botello 4+ to 5/5 MMT and has met 7 of 8 treatment goals. Patient Education: Body/Joint mechanics, Home Exercise Program, Home Safety Patient demonstrates compliance with HEP?: Yes Short Term Goals Goal #1: Patient independent and compliant with HEP. Goal to be met by: 01/13/17 (100%) Progress towards Goal:: Met Goal #2: Right shoulder strength 4+/5. Goal to be met by: 01/13/17 (100%) Progress towards Goal:: Met Goal #3: Patient to demonstate good postural awareness. 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 Goal to be met by: 01/13/17 (100%) Progress towards Goal:: Met Barrel Leveler Goals Goal #1: Pt knows HEP and to cont. Ex's to maintain level of function at D/C. Goal to be met by: 02/13/17 (100%) Progress towards goal: Met Goal #2: Pt able to perform all ADL's/functional reaching w/o pain or limitation. Goal to be met by: 02/13/17 (100%) Progress towards goal: Met Goal #3: Score on UE functional scale improved to 80/80. Goal to be met by: 02/13/17 (100%) Progress towards goal: Met Goal #4: Pt to return to work without limitation. Goal to be met by: 02/13/17 Plan PLAN OF CARE EXPIRES ON:: 02/13/17 ORDER # VISITS AND/OR THROUGH DATE: 02/13/17 PLAN: Plan for Discharge Comments:: Discharge at this time with HEP.
--- NOTE | 2017-01-23 11:59 | RS.QUICKDC ---
Discharge from PT Date of Discharge: 01/23/17 Number of Visits: 9 Reason for Discharge: Patient progressed well with treatment and met 7 of 8 treatment goals. 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 He stated he would like to continue HEP and was ready for discharge. Discharged with HEP.
== END 2017-02-08 ==
PROVIDERS: ATTEND Orthopaedic Surgery
DX: M75.21 Bicipital tendinitis, right shoulder (principal); Z98.890 Other specified postprocedural states

== ENCOUNTER 2018-03-10 11:46 | Emergency (ER) ==
[2018-03-10 11:51] VITALS: BP 158/96; TEMP 98.8; BMI 25.0
[2018-03-10] MEDS ORDERED: DILAUDID IM STA (12:13)
--- NOTE | 2018-03-10 12:20 | ED.PDOC ---
General ED Provider: Dr. KATELYN QUEEN Chief Complaint: Rash Stated Complaint: Patient is a 52 year old who comes to the ER with Right scapular pain that started 3 days ago went to the chriopractor but did not improve with manupulation. Woke up this morning with severe rash from the scapular to the right arm in a TI,T2 dermatomal distribution. Rates the pain as 9/10 Time Seen by Physician: 12:14 Mode of Arrival: Walk-In Information Source: Patient Primary Care Provider: PHYLLIS PRAJAPATI Nursing and Triage Documentation Reviewed and Agree: Yes Does patient meet sepsis criteria?: No If yes, has appropriate treatment been initiated?: No System Inflammatory Response Syndrome: Not Applicable Sepsis Protocol: For patient's 13 years and over: Temp is 96.8 and below OR 101 and greater Pulse >90 BPM Resp >20/minute Acutely Altered Mental Status Are patient's symptoms suggestive of a new infection, such as: -Pneumonia -Skin, Soft Tissue -Endocarditis -UTI -Bone, Joint Infection -Implantable Device -Acute Abdominal Infection -Wound Infection -Meningitis -Blood Stream Catheter Infection -Unknown Skin Complaint Exam - Skin Rash/Itching Complaint/Exam Onset/Duration: 1 day Symptoms Are: Still present Initial Severity: Moderate Current Severity: Severe Location: Right upper back, Right arm Potential Exposures: Denies: Food, Medicines, Plants, Pet exposure, Insect bite , Mites, Scabies, Other Prior Treatment: none Aggravating: Reports: Showering, Heat, Clothing Alleviating: Reports: None Associated Signs and Symptoms: Denies: Difficulty breathing, Fever, Chills Skin Findings: Present: Vesicles Body Picture: 1 - rash 2 - rash 3 - rash Differential Diagnoses: Allergic Reaction, Contact Dermatitis, Varicella Zoster Review of Systems - Review Of Systems Constitutional: Reports: No symptoms Eyes: Reports: No symptoms Ears, Nose, Mouth, Throat: Reports: No symptoms Respiratory: Reports: No symptoms Cardiac: Reports: No symptoms GI: Reports: No symptoms : Reports: No symptoms Musculoskeletal: Reports: Back pain Skin: Reports: Rash Neurological: Reports: No symptoms Endocrine: Reports: No symptoms Hematologic/Lymphatic: Reports: No symptoms All Other Systems: Reviewed and Negative Past Medical History - Past Medical History Previously Healthy: Yes Endocrine: Reports: Dyslipidemia Cardiovascular: Reports: Hypertension Respiratory: Reports: None Hematological: Reports: None Gastrointestinal: Reports: GERD Genitourinary: Reports: None Neuro/Psych: Reports: None Musculoskeletal: Reports: None Cancer: Reports: None - Surgical History General Surgical History: Reports: None - Family History Family History: Reports: None - Social History Smoking Status: Never smoker Hx Substance Use: No Alcohol Screening: Occasionally - Immunizations Tetanus Shot up to Date: Yes Physical Exam - Physical Exam Appearance: Ill-appearing Ill-appearing: Moderate Pain Distress: Severe Eyes: DONELL, EOMI, Conjunctiva clear Neck: Supple Respiratory: Airway patent, Breath sounds clear, Breath sounds equal, Respirations nonlabored Cardiovascular: RRR, Pulses normal, No rub, No murmur GI/: Soft, Nontender, No masses, Bowel sounds normal, No Organomegaly Musculoskeletal: Normal strength, ROM intact, No edema, No calf tenderness Skin: Warm, Dry Neurological: Sensation intact, Motor intact, Reflexes intact, Cranial nerves intact, Alert, Oriented Psychiatric: Affect appropriate, Mood appropriate Re-Evaluation - Re-Evaluation Time of Re-Evaluation: 12:39 Status: Improved Pain Level: 2 Appearance: NAD Critical Care Note - Critical Care Note Total Time (mins): 0 Course - Course Orders, Labs, Meds: Orders Category Date Time Status Hydromorphone HCl [Dilaudid] MEDS 03/10/18 12:13 Discontinued 1 mg IM ONCE STA Medications Discontinued Medications Generic Name Dose Route Start Last Admin Trade Name Freq PRN Reason Stop Dose Admin Hydromorphone HCl 1 mg 03/10/18 12:13 03/10/18 12:20 Dilaudid IM 03/10/18 12:14 1 mg ONCE STA Administration Vital Signs: Temp Pulse Resp BP Pulse Ox 03/10/18 11:47 98.8 F 72 18 158/96 H 96 Departure - Departure Time of Disposition: 12:39 Disposition: HOME SELF-CARE Discharge Problem: Shingles Qualifiers: Herpes zoster complications: without complications Qualified Code(s): B02.9 - Zoster without complications Instructions: Shingles (ED) Condition: Fair Pt referred to PMD for follow-up: Yes IPMP verified?: No Additional Instructions: take Medications as prescribed Follow up with PCP in 3 days Prescriptions: Ibuprofen [Motrin] 600 mg PO Q6H PRN #30 tablet PRN Reason: Analgesia Oxycodone-Acetaminophe 7.5-325 [Percocet 7.5-325] 1 tab PO Q4H #30 tablet Valacyclovir HCl [Valacyclovir] 1,000 mg PO TID #30 tablet Allergies/Adverse Reactions: Allergies Penicillins Adverse Reaction (Verified 03/10/18 11:52) Home Medications: Ambulatory Orders Carvedilol 6.25 mg PO BID 05/07/14 Citalopram Hydrobromide [Citalopram HBr] 20 mg PO DAILY 05/07/14 Lisinopril [Zestril] 40 mg PO DAILY 05/07/14 Omeprazole [Prilosec] 20 mg PO QDAC 05/07/14 Atorvastatin Calcium [Lipitor] 10 mg PO DAILY 08/30/16 Ibuprofen [Motrin] 600 mg PO Q6H PRN #30 tablet 03/10/18 Oxycodone-Acetaminophe 7.5-325 [Percocet 7.5-325] 1 tab PO Q4H #30 tablet Valacyclovir HCl [Valacyclovir] 1,000 mg PO TID #30 tablet 03/10/18 Disposition Discussed With: Patient, Family
== END 2018-03-10 12:40 | disposition home or self-care (01) ==
LOC: ED 11:46
DX: B02.9 Zoster without complications (principal)
CPT/HCPCS: 96372; 99283